=== PATIENT | female | born 2000 | race American Indian/Alaskan Native ===

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

== ENCOUNTER 2021-12-27 17:38 | Inpatient (IN) | payer MEDICAID ==
[2021-12-27] MEDS ORDERED: propofoL 200 MG/20 ML VIAL IV ONE (18:08)
[2021-12-27] MEDS ORDERED: SUCCINYLCHOLINE CHLORIDE 200 MG/10 ML INJ MDV ONE (18:08)
[2021-12-27] MEDS ORDERED: SODIUM CHLORIDE 0.9% IRR 1,500 ML BOTTLE IR ONE (18:20)
[2021-12-27] MEDS ORDERED: WATER FOR IRRIG STERILE 1,500 ML BOTTLE IR ONE (18:20)
[2021-12-27] MEDS ORDERED: ceFAZolin/STERILE WATER 2 GM/20 ML SYRINGE IV ONE (18:20)
[2021-12-27] MEDS ORDERED: MIDAZOLAM 2 MG/2 ML INJ ONE (18:28)
[2021-12-27] MEDS ORDERED: HYDROmorphone 1 MG/1 ML INJ ONE (18:28)
[2021-12-27] MEDS ORDERED: METHYLERGONOVINE MALEATE 0.2 MG/ML VIAL IM ONE (18:29)
[2021-12-27] MEDS ORDERED: TRANEXAMIC ACID 1,000 MG/10 ML ONE (18:30)
[2021-12-27] MEDS ORDERED: ETOMIDATE 20 MG/10 ML INJ IV ONE (18:30)
[2021-12-27] MEDS ORDERED: OXYTOCIN 10 UNIT/1 ML INJ ONE (18:32)
[2021-12-27] MEDS ORDERED: fentaNYL 100 MCG/2 ML INJ ONE (18:36)
[2021-12-27] MEDS ORDERED: ePHEDrine SULFATE 50 MG/1 ML INJ ONE (18:38)
[2021-12-27] MEDS ORDERED: PHENYLEPHRINE/NS 1,000 MCG/10 ML SYRINGE (OR USE) IV ONE (18:38)
--- NOTE | 2021-12-27 18:39 | Ultrasound Report ---
ULTRASOUND OBSTETRIC LIMITED INDICATION / CLINICAL INFORMATION: R/O placenta abruption previa cervical length,. Clinical Gestational Age (GA) in weeks, days: 24, 2 TECHNIQUE: Transabdominal. COMPARISON: None available. FINDINGS: HEART RATE (beats per minute): 98 PRESENTATION: Cephalic. ADDITIONAL FINDINGS: There is complete placenta previa. The placenta does not have good color-flow. T he cervix is closed measuring 3.4 cm. IMPRESSION: 1. There is complete placenta previa. The placenta does not have good color-flow and therefore placen kareem abruption is not excluded. The cervix is closed measuring 3.4 cm Signer Name: Lars Alvarado DO Signed: 12/27/2021 6:35 PM Workstation Name: [id number]
[2021-12-27] MEDS ORDERED: PORACTANT ALFA 80 MG/ML (1.5 ML) VIAL ONE (18:43)
[2021-12-27] MEDS ORDERED: ceFAZolin 1 GM VIAL ONE (18:43)
[2021-12-27 18:48] LABS: Cord Art Bld Carbxyhemoglobin 0.9; Cord Art Bld Methemoglobin 1.4 mmHg; Cord Arterial Blood HCO3 14.6; Cord Arterial Oxyhemoglobin 38.6
[2021-12-27] MEDS ORDERED: ONDANSETRON 4 MG/2 ML INJ ONE (18:50)
[2021-12-27] MEDS ORDERED: SODIUM CHLORIDE P/F VIAL 10 ML 20 ML ONE (18:50)
[2021-12-27] MEDS ORDERED: METHYLERGONOVINE MALEATE 0.2 MG/ML VIAL IM PRN (19:00)
[2021-12-27] MEDS ORDERED: OXYTOCIN 10 UNIT/1 ML INJ IM PRN (19:00)
[2021-12-27] MEDS ORDERED: LIDOCAINE (2%) 20 MG/1 ML VIAL 20 ML MDV INFILTRATI ONE (19:00)
[2021-12-27] MEDS ORDERED: ACETAMINOPHEN 325 MG TAB PO PRN ×2 (19:00→21:00)
[2021-12-27] MEDS ORDERED: CARBOPROST TROMETHAMINE 250 MCG/1 ML INJ IM PRN (19:00)
[2021-12-27] MEDS ORDERED: ePHEDrine SULFATE 50 MG/1 ML INJ IV PRN (19:00)
[2021-12-27] MEDS ORDERED: LACTATED RINGERS 1,000 ML IV SCH (19:00)
[2021-12-27] MEDS ORDERED: TERBUTALINE 1 MG/1 ML INJ SUB-Q PRN (19:00)
[2021-12-27] MEDS ORDERED: miSOPROStol 200 MCG TAB PR PRN (19:00)
[2021-12-27] MEDS ORDERED: LOPERAMIDE 2 MG CAP PO PRN (19:00)
[2021-12-27] MEDS ORDERED: OXYTOCIN DRIP 30 UNITS/500 ML BAG IV SCH ×2 (19:00→21:02)
[2021-12-27 19:09] LABS: Basophils # (Auto) 0.1 K/mm3 (0.0-0.1); Basophils % (Auto) 0.4 % (0.0-1.8); Eosinophils # (Auto) 0.7 K/mm3 (0.0-0.4); Eosinophils % (Auto) 4.8 % (0.0-4.3); Hematocrit 23.8 % (30.3-42.9); Hemoglobin 7.8 gm/dl (10.1-14.3); Lymphocytes # (Auto) 3.8 K/mm3 (1.2-5.4); Lymphocytes % (Auto) 26.3 % (13.4-35.0); Mean Corpuscular HGB Conc 33 % (30-34); Mean Corpuscular Volume 82 fl (79-97); Platelet Count 124 K/mm3 (140-440); Red Blood Count 2.89 M/mm3 (3.65-5.03); Red Cell Distribution Width 14.9 % (13.2-15.2)
[2021-12-27 19:16] LABS: INR 0.89 (0.87-1.13)
[2021-12-27 19:17] LABS: Partial Thromboplastin Time 26.2 Sec. (24.2-36.6)
[2021-12-27 19:24] LABS: Amphetamine Screen,Urine Negative; Benzodiazepines Screen,Urine Negative; Cocaine Screen,Urine Negative; Methadone Screen,Urine Negative; Opiate Screen,Urine Negative
[2021-12-27] MEDS ORDERED: MORPHINE 4 MG/1 ML INJ IV PRN ×2 (19:32→21:02)
[2021-12-27] MEDS ORDERED: diphenhydrAMINE 50 MG/ML VIAL IV PRN (19:32)
[2021-12-27] MEDS ORDERED: NALOXONE 0.4 MG/1 ML INJ IV PRN ×2 (19:32→21:02)
[2021-12-27] MEDS ORDERED: PROMETHAZINE 25 MG RECT SUPP PR PRN ×2 (19:32→21:00)
[2021-12-27] MEDS ORDERED: ONDANSETRON 4 MG/2 ML INJ IV PRN ×2 (19:32→21:02)
[2021-12-27] MEDS ORDERED: HYDROmorphone 1 MG/1 ML INJ IV PRN ×2 (19:32)
[2021-12-27] MEDS ORDERED: PROMETHAZINE 25 MG TAB PO PRN (19:32)
--- NOTE | 2021-12-27 19:35 | Anesthesia Consultation ---
Anesthesia Consult and Med Hx Date of service: 12/27/21 - Airway Anesthetic Teeth Evaluation: Good ROM Head & Neck: Adequate Mental/Hyoid Distance: Adequate Mallampati Class: Class II Intubation Access Assessment: Good - Pulmonary Exam CTA: Yes - Cardiac Exam Cardiac Exam: RRR - Pre-Operative Health Status ASA Pre-Surgery Classification: ASA2, Emergency Proposed Anesthetic Plan: General - Pulmonary Hx Smoking: No Hx Asthma: No Hx Respiratory Symptoms: No SOB: No COPD: No Home Oxygen Therapy: No Hx Pneumonia: No Hx Sleep Apnea: No - Cardiovascular System Hx Hypertension: No Hx Coronary Artery Disease: No Hx Heart Attack/AMI: No Hx Angina: No Hx Percutaneous Transluminal Coronary Angioplasty (PTCA): No Hx Cardia Arrhythmia: No Hx Pacemaker: No Hx Internal Defibrillator: No Hx Valvular Heart Disease: No Hx Heart Murmur: No Hx Peripheral Vascular Disease: No - Central Nervous System Hx Neuromuscular Disorder: No Hx Seizures: No CVA: No Hx Back Pain: No Hx Psychiatric Problems: No - Gastrointestinal Hx Ulcer: No Hx Gastroesophageal Reflux Disease: No - Endocrine Hx Renal Disease: No Hx End Stage Renal Disease: No Hx Cirrhosis: No Hx Liver Disease: No Hx Insulin Dependent Diabetes: No Hx Non-Insulin Dependent Diabetes: No Hx Thyroid Disease: No Hx Hypothyroidism: No Hx Hyperthyroidism: No - Hematic Hx Anemia: No Hx Sickle Cell Disease: No - Other Systems Hx Alcohol Use: No Hx Substance Use: No Hx Cancer: No Hx Obesity: No
--- NOTE | 2021-12-27 19:35 | Anesthesia Day of Surgery ---
Anesthesia Day of Surgery - Day of Surgery Patient Examined: Yes Patient H&P Reviewed: Yes Patient is NPO: Yes Beta Blockers: No Cardiac Clearance: No Pulmonary Clearance: No Pietro's Test: N/A
[2021-12-27 19:36] LABS: Cannabinoid Screen,Urine Positive
--- NOTE | 2021-12-27 19:45 | Operative Report ---
Operative Report Operative Report: Date of operation: 12/27/2021 Pre-operative diagnosis: 1. Intrauterine at 24 weeks gestational age 2. Placental abruption 3. Uncertain care 4. BMI 22.5 kg/m2 5. Vaginal bleeding 6. Nonreassuring heart rate tracing Post-operative diagnosis: 1. Intrauterine at 24 weeks gestational age 2. Placental abruption 3. Uncertain care 4. BMI 22.5 kg/m2 5. Vaginal bleeding 6. Nonreassuring heart rate tracing Procedure name(s): Primary low transverse uterine incision Surgeon: Candie Howard MD Warehouse Lead: weight reducing technician Anesthesia: General QBL: 1200 mL Urine output: [] mL of clear urine out at the end of the procedure Fluids: [] mL Findings: Liveborn female infant weight 1 Lbs. 8 oz. Apgars of 1 and 7 at one and 5 minutes; of 1 at 10 minutes Indications: This is a 21-year-old female who presented by EMS complaining of vaginal bleeding and pelvic pain. I received a call from Dr. Roche who was in the OR performing surgery that this patient had arrived after an evaluation ultrasound was determined the patient was 24 weeks gestational age with a complete previa and profuse vaginal bleeding with heart tones in the 100s. On arrival the decision was made to proceed with delivery. Attempted to obtain more information from the patient to confirm gestational age and whether she had care however patient was uncooperative and answered questions sporadically. Plan of care was explained patient initially declined however after further discussion patient decided to proceed with C- section consent was signed. Procedure: Patient was then prepped and draped in the usual sterile fashion. General anesthesia was induced. A Pfannenstiel incision was made and extended the fascia which was incised and extended lateral direction. The overlying fascia was sharply dissected away from the underlying rectus muscles in the superior inferior direction. The midline was entered bluntly. Bladder blade was placed. Vesicouterine fold was incised with blunt dissection bladder flap was created. A transverse incision was made in the lower uterine segment and extended superolateral direction with finger fractionation. Meconium tinged fluid was noted. Infant was delivered from the breech position. Cord was doubly clamped and cut was given to the resuscitation team present. Placenta spontaneously delivered. The uterus was exteriorized and cleaned of any further placental tissue and products of conception. Uterine incision was approximated using 0 Vicryl in a running interlocking stitch followed by further suture of 0 Vicryl in imbricating fashion. When hemostasis was noted the uterus was allowed back in the pelvic cavity. Pelvis was irrigated with warm normal saline. Once hemostasis was noted the rectus muscles were approximated using 0 Vicryl interrupted simple stitches 3. Once hemostasis was noted the fascia was approximated using 0 Vicryl simple running stitch. The incision was irrigated with warm saline, once hemostasis as noted, the subcuticular adipose tissue was reapproximated using 3-0 Vicryl in a simple running fashion. Skin was approximated using 4-0 Vicryl on a Hernan needle in a subcuticular manner. Counts were correct x3. Patient tolerated the procedure well, she was taken to recovery room in stable condition.
[2021-12-27] MEDS ORDERED: fentaNYL-BUPIV 2 MCG/ML-0.125% 200 MCG/100 ML BAG EPIDURAL SCH (20:00)
--- NOTE | 2021-12-27 20:08 | History and Physical Report ---
History of Present Illness Date of examination: 12/27/21 Date of admission: 12/27/21 18:56 Chief complaint: vaginal bleeding History of present illness: Patient is a at approximately 24 weeks presenting with vaginal bleeding. Limited history. Notes she was receiving care at an outside facility. Past History Past Medical History: no pertinent history Past Surgical History: no surgical history Family/Genetic History: none Social history: no significant social history - Obstetrical History : 1 Para: 0 Hx # Term Pregnancies: 0 Number of Pregnancies: 0 Spontaneous Abortions: 0 Induced : 0 Number of Living Children: 0 Medications and Allergies Allergies Allergy/AdvReac Type Severity Reaction Status Date / Time No Known Allergies Allergy Unverified 12/21/19 16:13 Home Medications Medication Instructions Recorded Confirmed Last Taken Type Clindamycin [Clindamycin CAP] 300 mg PO Q8H 10 Days #30 cap 12/21/19 Unknown Rx Active Meds: Active Medications Acetaminophen (Acetaminophen 325 Mg Tab) 650 mg PO Q4H PRN PRN Reason: Pain, Mild (1-3) Carboprost Tromethamine (Carboprost Tromethamine 250 Mcg/1 Ml Inj) 250 mcg IM ONCE PRN PRN Reason: Uterine Bleeding Diphenhydramine HCl (Diphenhydramine 50 Mg/Ml Vial) 12.5 mg IV Q2H PRN PRN Reason: Itching Ephedrine Sulfate (Ephedrine Sulfate 50 Mg/1 Ml Inj) 10 mg IV Q2M PRN PRN Reason: Hypotension Hydromorphone HCl (Hydromorphone 1 Mg/1 Ml Inj) 0.5 mg IV Q5M PRN PRN Reason: BREAK Hydromorphone HCl (Hydromorphone 1 Mg/1 Ml Inj) 0.5 mg IV Q4H PRN PRN Reason: breakthrough pain > 7/10 Oxytocin/Sodium Chloride (Pitocin/Ns 30 Unit/500ml) 30 units in 500 mls @ 2 mls/hr IV TITR BRIAN; Protocol Lactated Ringer's (Lactated Ringers) 1,000 mls @ 125 mls/hr IV DIRECT BRIAN Fentanyl/Bupivacaine/Sodium Chlor (Fentanyl-Bupiv 2 Mcg/Ml-0.125%) 200 mcg in 100 mls @ 8 mls/hr EPIDURAL TITRATE BRIAN; Protocol Loperamide HCl (Loperamide 2 Mg Cap) 2 mg PO ONCE PRN PRN Reason: give with Hemabate Methylergonovine Maleate (Methylergonovine Maleate 0.2 Mg/Ml Vial) 0.2 mg IM ONCE PRN PRN Reason: Uterine Bleeding Mineral Oil (Mineral Oil 30 Ml Oral Liqd) 30 ml PO QHS PRN PRN Reason: Constipation Misoprostol (Misoprostol 200 Mcg Tab) 800 mcg IL ONCE PRN PRN Reason: Uterine Bleeding Morphine Sulfate (Morphine 4 Mg/1 Ml Inj) 2.5 mg IV Q15M PRN PRN Reason: BREAK Naloxone HCl (Naloxone 0.4 Mg/1 Ml Inj) 0.2 mg IV Q2MIN PRN PRN Reason: Res Rate </= 8 or 02 SAT < 92% Ondansetron HCl (Ondansetron 4 Mg/2 Ml Inj) 4 mg IV Q8H PRN PRN Reason: Nausea And Vomiting Oxytocin (Oxytocin 10 Unit/1 Ml Inj) 10 unit IM ONCE PRN PRN Reason: Uterine Bleeding Promethazine HCl (Promethazine 25 Mg Tab) 25 mg PO Q6H PRN PRN Reason: Nausea And Vomiting Promethazine HCl (Promethazine 25 Mg Rect Supp) 25 mg IL Q6H PRN PRN Reason: Nausea And Vomiting Sodium Chloride (Sodium Chloride 0.9% 10 Ml Flush Syringe) 10 ml IV PRN NR Stop: 12/28/21 19:59 Terbutaline Sulfate (Terbutaline 1 Mg/1 Ml Inj) 0.25 mg SUB-Q ONCE PRN PRN Reason: Hyperstimulation/Hypertonicity Review of Systems Genitourinary: vaginal bleeding - Physical Exam Uterus: Positive: enlarged - Obstetrical FHR comments: FHR noted to be in 90s-low 100s during evaluation Results Result Diagrams: 12/27/21 18:25 Abnormal lab results 12/27/21 12/27/21 12/27/21 Range/Units 18:25 18:25 18:25 WBC 14.5 H (4.5-11.0) K/mm3 RBC 2.89 L (3.65-5.03) M/mm3 Hgb 7.8 L (10.1-14.3) gm/dl Hct 23.8 L (30.3-42.9) % MCH 27 L (28-32) pg Plt Count 124 L (140-440) K/mm3 Eos % (Auto) 4.8 H (0.0-4.3) % Banks # (Auto) 1.0 H (0.0-0.8) K/mm3 Eos # (Auto) 0.7 H (0.0-0.4) K/mm3 Seg Neutrophils # 8.9 H (1.8-7.7) K/mm3 D-Dimer 7474.13 H (0-234) ng/mlDDU Crossmatch See Detail All other labs normal. Ultrasound: report reviewed, image reviewed Assessment and Plan S/p U/S and patient found to have placenta previa In context of U/S findings and exam notable for vaginal bleeding, suspect placental abruption Patient to OR for stat C/S Procedure consents signed by patient Patient now s/p C/S. orders placed - Patient Problems (1) Placental abruption in second trimester Current Visit: Yes Status: Acute (2) Placenta previa antepartum in second trimester Current Visit: Yes Status: Acute
[2021-12-27 20:24] LABS: Albumin 0.5 g/dL (3.9-5); Calcium 6.2 mg/dL (8.4-10.2); Hemolysis Index 13
[2021-12-27 20:41] LABS: Alanine Aminotransferase < 5 units/L (7-56); BUN/Creatinine Ratio 5; Blood Urea Nitrogen < 1 mg/dL (7-17); HCG,Quantitative 1906 mIU/mL (0-4); Hepatitis C Virus Antibody Non-Reactive (NonReactive)
[2021-12-27] MEDS ORDERED: SIMETHICONE 80 MG CHEW TAB PO PRN (21:00)
[2021-12-27] MEDS ORDERED: ceFAZolin/NS 1 GM/50 ML 1 GM/50 ML BAG IV SCH (21:00)
[2021-12-27] MEDS ORDERED: MORPHINE 2 MG/1 ML INJ IV PRN (21:02)
[2021-12-27] MEDS ORDERED: MAGNESIUM HYDROXIDE (MOM) ORAL LIQD UDC PO PRN (21:02)
[2021-12-27] MEDS ORDERED: WITCH HAZEL/ GLYCERIN PAD TP PRN (21:02)
[2021-12-27] MEDS ORDERED: KETOROLAC 30 MG/1 ML INJ IV PRN (21:02)
[2021-12-27] MEDS ORDERED: D5W/LACTATED RINGERS 1,000 ML IV SCH (21:02)
[2021-12-27] MEDS ORDERED: SENNOSIDES 8.6 MG TAB PO PRN (21:02)
[2021-12-27] MEDS ORDERED: oxyCODONE /ACETAMINOPHEN 5-325MG TAB PO PRN (21:02)
[2021-12-27] MEDS ORDERED: LANOLIN/ZINC/DIMETHICONE (LANSINOH) 7 GM TP PRN (21:02)
--- NOTE | 2021-12-27 21:42 | Post Anesthesia Evaluation ---
- Post Anesthesia Evaluation Patient Participated: No Airway Patent: Yes Stable Respiratory Function: Yes Nausea/Vomiting: No Temp > 96.8F: Yes Pain Manageable: Yes Adequeate Hydration: Yes Anesthesia Complications: No Block Receding Appropriately: Not Applicable Patient on Ventilator: No
[2021-12-27 21:45] VITALS: BP 102/51
[2021-12-27] MEDS ORDERED: MINERAL OIL 30 ML ORAL LIQD PO PRN (22:00)
[2021-12-28] MEDS ORDERED: FERROUS SULFATE 325 MG TAB PO SCH (10:00)
[2021-12-28] MEDS ORDERED: IBUPROFEN 800 MG TAB PO PRN (19:30)
[2021-12-28] MEDS ORDERED: TETANUS,DIPH,PERTUSS(ACELL) VACCINE 0.5 ML SYRINGE IM ONE (19:32)
== END 2021-12-27 23:31 | disposition home or self-care (01) | DRG 765 ==
LOC: TRG 17:38 → APU 18:12 → TRG 18:55 → APU 18:56 → LD 21:04
PROVIDERS: ADMIT Student in an Organized Health Care Education/Training Program; ATTEND Student in an Organized Health Care Education/Training Program
PROC: 10D00Z1 Extraction of Products of Conception, Low, Open Approach (ICD-10-PCS; principal; 2021-12-27)
PROC: 3E0234Z Introduction of Serum, Toxoid and Vaccine into Muscle, Percutaneous Approach (ICD-10-PCS; 2021-12-27)
DX: O60.12X0 Preterm labor second trimester with preterm delivery second trimester, not applicable or unspecified (principal); O45.92 Premature separation of placenta, unspecified, second trimester; O77.0 Labor and delivery complicated by meconium in amniotic fluid; O76 Abnormality in fetal heart rate and rhythm complicating labor and delivery; Z3A.24 24 weeks gestation of pregnancy; Z37.0 Single live birth
CPT/HCPCS: 36415; 76815; 80053; 80307; 82374; 82803; 82947; 84702; 85025; 85379; 85384; 85610; 85730; 86592; 86706; 86762; 86803; 86850; 86900; 86901; 86920; 87806; 88305; G0378; J3490; J0330; J0690; J1170; J2250; J2370; J2405; J2590; J2704; J3010